=== PATIENT | female | born 1990 | race Caucasian/White ===

== ENCOUNTER 2019-11-07 07:05 | Inpatient (IN) | payer MEDICAID ==
[~2019-11-07] VITALS: Ht 167.6 cm; Wt 118.6 kg
[2019-11-07 07:42] LABS: PLATELET COUNT 174 x10^3mcL (130-400); RED CELL DISTRIBUTION WIDTH 14.2 % (11.5-14.5)
[2019-11-07 07:51] VITALS: Ht 167.6 cm; Wt 118.6 kg
[2019-11-07 08:02] LABS: ALKALINE PHOSPHATASE 64 U/L (46-116); ALT/SGPT 52 U/L (14-59); AST/SGOT 53 U/L (15-37); CALCIUM 8.1 mg/dL (8.5-10.1); CARBON DIOXIDE 22.6 mmol/L (21-32); CHLORIDE SERUM 99 mmol/L (98-107); CREATININE SERUM 1.5 mg/dL (0.6-1.0); GFR1 43 mL/min; GLUCOSE SERUM 105 mg/dL (74-106); POTASSIUM SERUM 3.1 mmol/L (3.5-5.1); SODIUM SERUM 134 mmol/L (136-145); TOTAL PROTEIN, SERUM 6.4 g/dL (6.4-8.2); URIC ACID 8.7 mg/dL (2.6-6.0)
[2019-11-07 08:19] LABS: UA SPECIFIC GRAVITY 1.025 (1.005-1.035); microscopic required? YES; urine erythrocyte 1+ (NEGATIVE)
[2019-11-07 08:46] LABS: ALBUMIN 2.7 g/dL (3.4-5.0)
[2019-11-07 11:18] LABS: BAND NEUTROPHIL 13 % (0-10); BASOPHIL 0 % (0-2); MONOCYTE 8 % (0-7); SEGMENTED NEUTROPHILS 79 % (37-75)
[2019-11-07 11:19] LABS: PLATELET MORPHOLOGY PLATELETS DECREASED; rbc morphology (normal/abnorm) ABNORMAL (NORMAL)
[2019-11-07 11:28] VITALS: BP 144/95
[2019-11-07 16:50] VITALS: BP 118/76
[2019-11-07 20:55] VITALS: BP 123/68
[2019-11-08 05:30] VITALS: BP 106/78
[2019-11-08 06:34] LABS: RED CELL DISTRIBUTION WIDTH 14.4 % (11.5-14.5)
[2019-11-08 06:42] LABS: CALCIUM 8.1 mg/dL (8.5-10.1); CARBON DIOXIDE 24.2 mmol/L (21-32); CREATININE SERUM 1.2 mg/dL (0.6-1.0); POTASSIUM SERUM 4.7 mmol/L (3.5-5.1)
[2019-11-08 07:05] LABS: PLATELET COUNT 121 x10^3mcL (130-400)
[2019-11-08 07:48] VITALS: BP 130/80
[2019-11-08 10:30] LABS: BAND NEUTROPHIL 3 % (0-10); BASOPHIL 0 % (0-2); MONOCYTE 3 % (0-7); SEGMENTED NEUTROPHILS 89 % (37-75)
[2019-11-08 10:31] LABS: PLATELET MORPHOLOGY PLATELETS INCREASED; rbc morphology (normal/abnorm) ABNORMAL (NORMAL)
[2019-11-08 15:42] VITALS: BP 127/88
[2019-11-08 20:56] VITALS: BP 134/89
[2019-11-09 05:33] VITALS: BP 130/69
[2019-11-09 06:41] LABS: PLATELET COUNT 127 x10^3mcL (130-400); RED CELL DISTRIBUTION WIDTH 15.1 % (11.5-14.5)
[2019-11-09 07:05] LABS: CALCIUM 8.6 mg/dL (8.5-10.1); CARBON DIOXIDE 23.3 mmol/L (21-32); CHLORIDE SERUM 107 mmol/L (98-107); CREATININE SERUM 0.9 mg/dL (0.6-1.0); GFR1 > 60 mL/min; GLUCOSE SERUM 105 mg/dL (74-106); POTASSIUM SERUM 4.3 mmol/L (3.5-5.1); SODIUM SERUM 140 mmol/L (136-145)
[2019-11-09 07:31] VITALS: BP 145/91
[2019-11-09 11:45] LABS: BAND NEUTROPHIL 24 % (0-10); BASOPHIL 0 % (0-2); MONOCYTE 4 % (0-7); MYELOCYTE 1 % (0-2); PLATELET MORPHOLOGY LARGE PLATELET SEEN; SEGMENTED NEUTROPHILS 63 % (37-75); rbc morphology (normal/abnorm) NORMAL (NORMAL)
[2019-11-09 12:09] VITALS: BP 119/74
[2019-11-09 13:10] VITALS: BP 93/58
[2019-11-09 17:18] VITALS: BP 148/75
[2019-11-09 20:39] VITALS: BP 142/76
[2019-11-10 04:47] VITALS: BP 130/60
[2019-11-10 06:44] LABS: PLATELET COUNT 177 x10^3mcL (130-400); RED CELL DISTRIBUTION WIDTH 14.4 % (11.5-14.5)
[2019-11-10 06:53] LABS: CALCIUM 8.1 mg/dL (8.5-10.1); CARBON DIOXIDE 25.8 mmol/L (21-32); CHLORIDE SERUM 105 mmol/L (98-107); CREATININE SERUM 0.7 mg/dL (0.6-1.0); GFR1 > 60 mL/min; GLUCOSE SERUM 81 mg/dL (74-106); POTASSIUM SERUM 3.2 mmol/L (3.5-5.1); SODIUM SERUM 139 mmol/L (136-145)
[2019-11-10 09:04] VITALS: BP 148/86
[2019-11-10 11:54] LABS: BAND NEUTROPHIL 3 % (0-10); BASOPHIL 0 % (0-2); MONOCYTE 6 % (0-7); SEGMENTED NEUTROPHILS 86 % (37-75)
[2019-11-10 11:55] LABS: rbc morphology (normal/abnorm) ABNORMAL (NORMAL)
[2019-11-10 11:56] LABS: PLATELET MORPHOLOGY PLATELETS DECREASED
[2019-11-10 13:13] VITALS: BP 143/111
[2019-11-10 17:29] VITALS: BP 157/94
[2019-11-10 21:39] VITALS: BP 137/95
[2019-11-11 05:42] VITALS: BP 135/84
[2019-11-11 06:06] LABS: PLATELET COUNT 216 x10^3mcL (130-400)
[2019-11-11 06:33] LABS: CALCIUM 8.1 mg/dL (8.5-10.1); CARBON DIOXIDE 24.5 mmol/L (21-32); CHLORIDE SERUM 102 mmol/L (98-107); CREATININE SERUM 0.7 mg/dL (0.6-1.0); GFR1 > 60 mL/min; GLUCOSE SERUM 93 mg/dL (74-106); POTASSIUM SERUM 3.4 mmol/L (3.5-5.1); SODIUM SERUM 136 mmol/L (136-145)
[2019-11-11 08:45] VITALS: BP 133/97
[2019-11-11 11:21] LABS: BAND NEUTROPHIL 2 % (0-10); BASOPHIL 0 % (0-2); MONOCYTE 13 % (0-7); PLATELET MORPHOLOGY PLATELETS NORMAL; SEGMENTED NEUTROPHILS 81 % (37-75); rbc morphology (normal/abnorm) ABNORMAL (NORMAL)
[2019-11-11 12:48] VITALS: BP 143/96
[2019-11-11 17:31] VITALS: BP 113/65
[2019-11-11 20:05] VITALS: BP 112/72
[2019-11-12] VITALS (7 sets, daily range): BP systolic 105–141; BP diastolic 69–100
[2019-11-13 05:37] VITALS: BP 129/80
[2019-11-13 06:27] LABS: BASOPHIL % 0.1 % (0-2); PLATELET COUNT 368 x10^3mcL (130-400)
[2019-11-13 06:53] LABS: CALCIUM 8.4 mg/dL (8.5-10.1); CARBON DIOXIDE 24.7 mmol/L (21-32); CHLORIDE SERUM 104 mmol/L (98-107); CREATININE SERUM 0.6 mg/dL (0.6-1.0); GFR1 > 60 mL/min; GLUCOSE SERUM 93 mg/dL (74-106); SODIUM SERUM 138 mmol/L (136-145)
[2019-11-13 07:19] LABS: RED CELL DISTRIBUTION WIDTH 15.2 % (11.5-14.5)
[2019-11-13 08:45] VITALS: BP 134/86
[2019-11-13 12:44] VITALS: BP 102/61
[2019-11-13 16:36] VITALS: BP 135/91
[2019-11-13 20:36] VITALS: BP 155/89
[2019-11-14 06:00] VITALS: BP 120/68
[2019-11-14 06:27] LABS: BASOPHIL % 0.1 % (0-2)
[2019-11-14 06:57] LABS: PLATELET COUNT 423 x10^3mcL (130-400); RED CELL DISTRIBUTION WIDTH 15.5 % (11.5-14.5)
[2019-11-14 07:22] LABS: CALCIUM 8.1 mg/dL (8.5-10.1); CARBON DIOXIDE 22.2 mmol/L (21-32); CHLORIDE SERUM 103 mmol/L (98-107); CREATININE SERUM 0.7 mg/dL (0.6-1.0); GFR1 > 60 mL/min; GLUCOSE SERUM 88 mg/dL (74-106); POTASSIUM SERUM 3.9 mmol/L (3.5-5.1); SODIUM SERUM 136 mmol/L (136-145)
[2019-11-14 08:26] VITALS: BP 118/84
[2019-11-14 12:19] VITALS: BP 136/76
[2019-11-14 21:49] VITALS: BP 111/79
[2019-11-15 05:41] VITALS: BP 135/75
[2019-11-15 06:03] LABS: BASOPHIL % 0.4 % (0-2)
[2019-11-15 06:23] LABS: PLATELET COUNT 460 x10^3mcL (130-400); RED CELL DISTRIBUTION WIDTH 15.1 % (11.5-14.5)
[2019-11-15 06:48] LABS: CALCIUM 8.4 mg/dL (8.5-10.1); CARBON DIOXIDE 25.5 mmol/L (21-32); CHLORIDE SERUM 104 mmol/L (98-107); CREATININE SERUM 0.6 mg/dL (0.6-1.0); GFR1 > 60 mL/min; GLUCOSE SERUM 93 mg/dL (74-106); SODIUM SERUM 138 mmol/L (136-145)
[2019-11-15 08:37] VITALS: BP 119/89
[2019-11-15 12:47] VITALS: BP 125/88
[2019-11-15 16:03] VITALS: BP 118/81
[2019-11-15 19:45] VITALS: BP 137/93
[2019-11-16 05:14] VITALS: BP 125/74
[2019-11-16 06:26] LABS: BASOPHIL % 0.3 % (0-2)
[2019-11-16 06:49] LABS: CALCIUM 8.8 mg/dL (8.5-10.1); CHLORIDE SERUM 105 mmol/L (98-107); CREATININE SERUM 0.6 mg/dL (0.6-1.0); GFR1 > 60 mL/min; GLUCOSE SERUM 94 mg/dL (74-106); POTASSIUM SERUM 3.8 mmol/L (3.5-5.1); SODIUM SERUM 139 mmol/L (136-145)
[2019-11-16 07:05] LABS: PLATELET COUNT 450 x10^3mcL (130-400); RED CELL DISTRIBUTION WIDTH 14.7 % (11.5-14.5)
[2019-11-16 08:58] VITALS: BP 159/84
[2019-11-16] MEDS ORDERED: LEVAQUIN500 M1 PO (10:16)
[2019-11-16 10:19] VITALS: BP 159/84
== END 2019-11-16 11:50 | disposition home or self-care (01) | DRG 720 ==
LOC: ED 07:05 → MU 09:09 → DU 09:09 → MU 10:51 → DU 17:33 → MU 11-09 10:10
PROVIDERS: Emergency Medicine; Family Medicine; Urology; ADMIT Student in an Organized Health Care Education/Training Program
PROC: BT1FYZZ Fluoroscopy of Left Kidney, Ureter and Bladder using Other Contrast (ICD-10-PCS; 2019-11-08)
PROC: 0T778DZ Dilation of Left Ureter with Intraluminal Device, Via Natural or Artificial Opening Endoscopic (ICD-10-PCS; principal; 2019-11-08 10:00)
DX: A41.59 Other Gram-negative sepsis (principal); N17.0 Acute kidney failure with tubular necrosis; N13.6 Pyonephrosis; B96.1 Klebsiella pneumoniae [K. pneumoniae] as the cause of diseases classified elsewhere; E87.6 Hypokalemia; F17.210 Nicotine dependence, cigarettes, uncomplicated; E66.9 Obesity, unspecified; Z68.33 Body mass index [BMI] 33.0-33.9, adult; Z90.49 Acquired absence of other specified parts of digestive tract; Z79.899 Other long term (current) drug therapy; Z88.0 Allergy status to penicillin
CPT/HCPCS: 97116-GP; C1769; C2625; G0378; J1885; J1956; J2270; J2405; J2704; J3010; J7030; J7042; J7120; Q0092; Q9967

== ENCOUNTER 2020-01-19 10:35 | Emergency (ER) | payer MEDICAID ==
[~2020-01-19] VITALS: Ht 165.1 cm; Wt 111.6 kg
[~2020-01-19 10:35] MED LIST: LEVAQUIN500 M1 PO
[2020-01-19 14:28] VITALS: BP 138/86
== END 2020-01-19 14:10 | disposition home or self-care (01) ==
LOC: ED 10:35
DX: N89.8 Other specified noninflammatory disorders of vagina (principal); R30.0 Dysuria; Z46.6 Encounter for fitting and adjustment of urinary device; Z87.442 Personal history of urinary calculi; Z88.0 Allergy status to penicillin